=== PATIENT | male | born 1960 | race Caucasian/White ===

== ENCOUNTER 2023-03-05 19:09 | Emergency (ER) | payer OTHER ==
[~2023-03-05 19:09] MED LIST: Iopamidol 370 76% 100 ML VIAL ONE
[2023-03-05 19:59] LABS: Hemoglobin 13.6 g/dL (13.5-17.5); Mean Corpuscular HGB CONC 33.2 g/dL (32.0-36.0); Mean Corpuscular Hemoglobin 30.3 pg (27.0-33.0); Mean Corpuscular Volume 91.3 fl (81.2-95.1); Platelet Count 192 10x3/uL (150-450); RBC Distribution Width 13.3 % (11.5-14.5); Red Blood Cell (RBC) Count 4.49 10x6/uL (4.32-5.72)
[2023-03-05 20:13] LABS: Troponin I 0.042 ng/mL (< 0.028)
[2023-03-05 20:17] LABS: SARS-CoV-2 NAA Rapid Test Not Detected (NotDetected)
[2023-03-05 20:21] LABS: ALT (SGPT) 23 U/L (8-55); AST (SGOT) 24 U/L (5-34); Alkaline Phosphatase 99 U/L (40-110); Anion Gap 16 mmol/L (10-20); BUN (Urea Nitrogen) 15 mg/dL (8.4-25.7); Bilirubin, Total 0.8 mg/dL (0.2-1.2); Calc. Creatinine Clearance 0 mL/min (70-130); Calcium 9.2 mg/dL (7.8-10.44); Carbon Dioxide 25 mmol/L (23-31); Chloride 96 mmol/L (98-107); Estimated GFR 96; Globulin 3.4 g/dL (2.4-3.5); Glucose 123 mg/dL (80-115); Potassium 5.2 mmol/L (3.5-5.1); Protein, Total 7.4 g/dL (5.8-8.1); Sodium 132 mmol/L (136-145)
[2023-03-05 20:36] LABS: Band 10 % (5-11); Lymphocytes 7 % (21-51); Monocytes 3 % (0-10); Reactive Lymphocytes 1 % (0-10)
[2023-03-05 20:41] LABS: Neutrophil 79 % (42-75)
[2023-03-05 20:42] LABS: Platelet Adequacy Comment Appears Adequate; RBC Morph Comment Within Normal Limits
[2023-03-05 20:43] LABS: Large Platelets SLIGHT (None Seen); Toxic Granulation SLIGHT
[2023-03-05 20:44] LABS: MDiff Complete? YES
[2023-03-05] MEDS ORDERED: Piperacillin/Tazobactam 3.375 GM VIAL ONE (22:33)
[2023-03-05] MEDS ORDERED: Azithromycin 500 MG VIAL ONE (23:23)
== END 2023-03-06 00:29 | disposition short-term general hospital (02) ==
LOC: CSHERS 19:09 → EEVIPCON 19:09 → CSHERS 03-06 00:29
DX: J18.9 Pneumonia, unspecified organism (principal); J44.9 Chronic obstructive pulmonary disease, unspecified; R06.02 Shortness of breath; I10 Essential (primary) hypertension; Z20.822 Contact with and (suspected) exposure to COVID-19
CPT/HCPCS: 36415; 71045; 71275; 80053; 83605; 83880; 84484; 85025; 87040; 93005; 96365; 96367; J0456; J2543; Q9967